=== PATIENT | male | born 1995 | race American Indian/Alaskan Native ===

== ENCOUNTER 2022-04-01 16:45 | Emergency (ER) | payer SELFPAY ==
[2022-04-01] MEDS ORDERED: IBUPROFEN 600 MG TAB PO ONE (20:10)
[2022-04-01] MEDS ORDERED: ACETAMINOPHEN 500 MG TAB PO ONE (20:10)
[2022-04-01] MEDS ORDERED: TETANUS,DIPH,PERTUSS(ACELL) VACCINE 0.5 ML SYRINGE IM ONE (20:10)
--- NOTE | 2022-04-01 20:16 | Emergency Department Report ---
ED Head Trauma HPI - General Chief complaint: Wound/Laceration Stated complaint: LAC TO HEAD Source: patient Mode of arrival: Ambulatory Limitations: No Limitations - History of Present Illness Initial comments: Patient is a 26-year-old -[place] male with no past medical history except chronic alcohol abuse who presents to the ED with complaint of acute onset persistent painful bleeding left temporal scalp laceration wound after he slipped and fell at home about 12 hours ago. Patient states that him and his friends were drinking alcohol when he stood up and walked on the floor but slipped and fell down hitting his left temporal scalp. Patient states that he is not up-to-date with his tetanus vaccinations. Patient denies loss of consciousness, headache, chest pain or shortness of breath, nausea and vomiting, change in vision, neck pain, change in speech, seizures, dizziness, syncope or lightheadedness, back pain, numbness and tingling or weakness of upper and lower extremities bilaterally. MD Complaint: head injury, head pain, other (left temporal scalp laceration) -: Sudden, hour(s) (12) Mechanism of Injury: mechanical fall Location: temporal (left) Loss of Consciousness: no Previous Trauma to this Area: No Place: home Radiation: none Severity: moderate Severity scale (0 -10): 5 Quality: sharp, aching Consistency: constant Provoking factors: none known Other Injuries: laceration (temporal scalp laceration) Associated Symptoms: denies other symptoms. denies: confusion, amnesia, repetitive questioning, vision changes, nausea, vomiting, vertigo, syncope, numbness, weakness, tingling, neck pain, other - Related Data Previous Rx's Medication Instructions Recorded Last Taken Type Ibuprofen [Motrin] 600 mg PO Q8H PRN #30 tablet 04/01/22 Unknown Rx cephALEXin [Keflex] 500 mg PO Q8HR #30 cap 04/01/22 Unknown Rx Allergies/Adverse reactions: Allergies Allergy/AdvReac Type Severity Reaction Status Date / Time guava Allergy Swelling Verified 04/01/22 18:09 ED Review of Systems ROS: Stated complaint: LAC TO HEAD Other details as noted in HPI Constitutional: denies: chills, fever Eyes: denies: eye pain, eye discharge, vision change ENT: denies: ear pain, throat pain Respiratory: denies: cough, shortness of breath, wheezing Cardiovascular: denies: chest pain, palpitations Endocrine: no symptoms reported Gastrointestinal: denies: abdominal pain, nausea, vomiting, diarrhea Genitourinary: denies: as per HPI, urgency, dysuria Musculoskeletal: denies: back pain, joint swelling, arthralgia Skin: other (Bleeding left frontal scalp laceration wound). denies: rash, lesions Neurological: headache. denies: weakness, paresthesias Psychiatric: denies: anxiety, depression Hematological/Lymphatic: denies: easy bleeding, easy bruising ED Past Medical Hx - Past Medical History Previous Medical History?: No - Surgical History Past Surgical History?: No - Social History Smoking Status: Never Smoker - Medications Home Medications: Home Medications Medication Instructions Recorded Confirmed Last Taken Type Ibuprofen [Motrin] 600 mg PO Q8H PRN #30 tablet 04/01/22 Unknown Rx cephALEXin [Keflex] 500 mg PO Q8HR #30 cap 04/01/22 Unknown Rx ED Physical Exam - General Limitations: No Limitations General appearance: alert, in no apparent distress - Head Head exam: Present: other (left tempral scalp laceration) - Eye Eye exam: Present: normal appearance, PERRL, EOMI Pupils: Present: normal accommodation - ENT ENT exam: Present: normal exam, normal orophraynx, mucous membranes moist, TM's normal bilaterally, normal external ear exam - Neck Neck exam: Present: normal inspection, full ROM. Absent: tenderness - Respiratory Respiratory exam: Present: normal lung sounds bilaterally. Absent: respiratory distress, wheezes, rales, rhonchi, stridor, chest wall tenderness, accessory muscle use, decreased breath sounds, prolonged expiratory - Cardiovascular Cardiovascular Exam: Present: regular rate, normal rhythm, normal heart sounds. Absent: systolic murmur, diastolic murmur, rubs, gallop - GI/Abdominal GI/Abdominal exam: Present: soft, normal bowel sounds. Absent: tenderness, guarding, rebound, hyperactive bowel sounds, hypoactive bowel sounds, organomegaly, mass, bruit - Extremities Exam Extremities exam: Present: normal inspection, full ROM, normal capillary refill. Absent: tenderness - Back Exam Back exam: Present: normal inspection, full ROM. Absent: tenderness, CVA tenderness (R), CVA tenderness (L), muscle spasm, paraspinal tenderness, vertebral tenderness - Neurological Exam Neurological exam: Present: alert, oriented X3, CN II-XII intact, normal gait, reflexes normal - Psychiatric Psychiatric exam: Present: normal affect, normal mood - Skin Skin exam: Present: warm, dry, intact, normal color, other (bleeding left temporqal scalp 2 cm laceration wound). Absent: rash ED Course Vital Signs 04/01/22 18:06 Temperature 97.9 F Pulse Rate 92 H Respiratory 16 Rate Blood Pressure 131/84 O2 Sat by Pulse 98 Oximetry - Laceration /Wound Repair Left Temporal Wound Location: head Wound Length (cm): 2 Wound's Depth, Shape: superficial, linear Wound Explored: contaminated Irrigated w/ Saline (ccs): 200 Betadine Prep?: Yes Wound Debrided: extensive Wound Repaired With: sutures (celia) Number of Sutures: 3 Layer Closure?: No Sterile Dressing Applied?: No - Medical Decision Making This is a 26-year-old -[place] male with no past medical history except chronic alcohol abuse who presents to the ED with complaint of acute onset persistent painful bleeding left temporal scalp laceration wound after he slipped and fell at home about 12 hours ago. Patient states that him and his friends were drinking alcohol when he stood up and walked on the floor but slipped and fell down hitting his left temporal scalp. Patient states that he is not up-to-date with his tetanus vaccinations. In the ED, patient is alert and oriented x3 and is not in any distress. Patient is fully ambulatory in the ED, and physical exam is unremarkable except for a 2 cm laceration wound on left temporal scalp. Patient was treated for pain in the ED and also received booster tetanus vaccinations in the ED. The left temporal scalp laceration wound was extensively debrided and cleaned with normal saline and stapled. Patient tolerated the procedure well. Patient was therefore discharged home on medications and advised to follow-up with his primary care physician in 7 to 10 days for reevaluation or return to the ED immediately if symptoms get worse. Patient was also advised to return to the ED or to his primary care physician in 8 to 10 days for celia removal. - Differential Diagnosis Scalp contusion; scalp laceration; head injury; - Core Measures AMI Core Measures Followed: No Measure Exclusions: not indicated - NEXUS Criteria Focal neurological deficit present: No Midline spinal tenderness present: No Altered level of consciousness: No Intoxication present: No Distracting injury present: No NEXUS results: C-Spine can be cleared clinically by these results. Imaging is not required. Critical care attestation.: If time is entered above; I have spent that time in minutes in the direct care of this critically ill patient, excluding procedure time. ED Disposition Clinical Impression: Scalp laceration Qualifiers: Encounter type: initial encounter Qualified Code(s): S01.01XA - Laceration without foreign body of scalp, initial encounter Contusion of scalp Qualifiers: Encounter type: initial encounter Qualified Code(s): S00.03XA - Contusion of scalp, initial encounter Disposition: HOME / SELF CARE / HOMELESS Is pt being admited?: No Does the pt Need Aspirin: No Condition: Stable Instructions: Contusion, [id number], Facial or Scalp Contusion, [id number], Laceration Care, Adult, [id number] Additional Instructions: Take medication with food, drink plenty of fluids, follow-up with your primary care physician in 7 to 10 days for reevaluation. Return to the ED immediately if symptoms get worse. Prescriptions: cephALEXin [Keflex] 500 mg PO Q8HR #30 cap Ibuprofen [Motrin] 600 mg PO Q8H PRN #30 tablet PRN Reason: Pain Referrals: [facility] [Provider Group] - 3-5 Days Time of Disposition: 20:18 Print Language: UKRAINIAN
[2022-04-01 22:18] VITALS: BP 128/78
== END 2022-04-01 22:18 | disposition home or self-care (01) ==
LOC: ED 16:45
DX: S01.01XA Laceration without foreign body of scalp, initial encounter (principal); Z91.018 Allergy to other foods; Z79.899 Other long term (current) drug therapy; W01.0XXA Fall on same level from slipping, tripping and stumbling without subsequent striking against object, initial encounter; Y93.89 Activity, other specified; Y92.89 Other specified places as the place of occurrence of the external cause; Y99.8 Other external cause status
CPT/HCPCS: 90471; 90715; 99282